=== PATIENT | female | born 1950 | race Caucasian/White ===

== ENCOUNTER 2020-02-13 13:00 | Outpatient (REF) | payer MEDICARE, SELFPAY ==
[2020-02-13 14:18] LABS: MANUAL DIFF FLAG NO
[2020-02-13 14:23] LABS: Basophils Absolute Auto 0.1 X10*3/uL (0.0-0.2); Basophils Percent Auto 0.8 % (0-2); Eosinophils Absolute Auto 0.2 X10*3/uL (0.0-0.4); Eosinophils Percent Auto 2.4 % (0-4); Hematocrit 36.6 % (37-47); Hemoglobin 11.8 g/dl (12.0-16.0); Imm Gran Abs Auto 0.02 X10*3/uL (0.00-0.03); Imm Gran Pct Auto 0.3 % (0.0-0.4); Lymphocytes Absolute Auto 1.8 X10*3/uL (1.2-4.9); Lymphocytes Percent Auto 29.1 % (20-40); Mean Corpuscular HGB Conc 32.2 g/dl (31.0-35.0); Mean Corpuscular Hemoglobin 30.1 pg (27.0-33.0); Mean Corpuscular Volume 93.4 fL (80-98); Monocytes Absolute Auto 0.5 X10*3/uL (0.1-1.2); Neutrophils Absolute Auto 3.7 X10*3/uL (2.0-8.3); Neutrophils Percent Auto 59.4 % (45-73); Platelet Count 284 X10*3/uL (160-400); Red Blood Count 3.92 X10*6/uL (4.20-5.50); Red Cell Distribution Width 14.7 % (11.0-16.0); White Blood Count 6.2 X10*3/uL (4.8-10.8)
[2020-02-13 14:33] LABS: Estimated Average Glucose 108 mg/dL; Hemoglobin A1c % 5.4 %
[2020-02-13 15:03] LABS: Iron 90 mcg/dL (30-160); Percent Iron Saturation 25 % (15-50); Total Iron Binding Capacity 355 mcg/dL (228-428); Unsaturated Iron Binding 265 ug/dL
[2020-02-13 15:25] LABS: Ferritin 26 ng/mL (10-250); Vitamin D 25-OH Total 24.9 ng/mL (>30)
[2020-02-13 15:37] LABS: Folate 11.3 ng/mL (> or = 4.0); Vitamin B12 < 146 pg/mL (200-900)
== END 2020-02-13 13:01 | disposition home or self-care (01) ==
LOC: HO.LAB 13:00
PROVIDERS: PCP Internal Medicine; Visit Provider Internal Medicine
DX: R53.83 Other fatigue (principal); E11.9 Type 2 diabetes mellitus without complications; Z20.828 Contact with and (suspected) exposure to other viral communicable diseases
CPT/HCPCS: 36415; 82306; 82607; 82728; 82746; 83036; 83540; 85025; C9803; U0003

== ENCOUNTER → 2020-07-01 09:45 | Outpatient (BNVA) | payer MEDICARE, SELFPAY | PROVIDERS: PCP Internal Medicine; Visit Provider Internal Medicine | DX: Z01.810 Encounter for preprocedural cardiovascular examination (principal); I95.1 Orthostatic hypotension; R53.83 Other fatigue; Z88.8 Allergy status to other drugs, medicaments and biological substances; Z79.899 Other long term (current) drug therapy | CPT/HCPCS: 93005; 99212 ==

== ENCOUNTER 2020-07-02 10:30 | Outpatient (REF) | payer MEDICARE, SELFPAY ==
[2020-07-02 12:23] LABS: Blood Urea Nitrogen 20 mg/dL (9-16); Estimated Glomerular Filt Rate > 60
[2020-07-02 12:56] LABS: Vitamin B12 201 pg/mL (200-900)
== END 2020-07-02 10:31 | disposition home or self-care (01) ==
LOC: HO.LAB 10:30
PROVIDERS: PCP Internal Medicine; Visit Provider Internal Medicine
DX: R53.83 Other fatigue (principal); N18.9 Chronic kidney disease, unspecified
CPT/HCPCS: 36415; 82565; 82607; 84520

== ENCOUNTER → 2020-07-20 08:50 | Outpatient (BNVA) | payer MEDICARE, SELFPAY | PROVIDERS: PCP Internal Medicine; Referring Provider Internal Medicine; Visit Provider Internal Medicine | DX: Z01.810 Encounter for preprocedural cardiovascular examination (principal); I95.1 Orthostatic hypotension; I10 Essential (primary) hypertension | CPT/HCPCS: 99212 ==

== ENCOUNTER → 2020-09-02 11:52 | Outpatient (BNVA) | payer MEDICARE, SELFPAY | PROVIDERS: PCP Internal Medicine; Visit Provider Internal Medicine ==

== ENCOUNTER 2020-09-13 08:39 | Emergency (ER) | payer MEDICARE, SELFPAY ==
--- NOTE | ~2020-09-13 | XR_ITS ---
EXAMINATION: XR CHEST CLINICAL INFORMATION: Pain. COMPARISON: 01/23/2016. TECHNIQUE: Frontal view of the chest was obtained. FINDINGS: No significant abnormality is noted involving the heart, lungs, mediastinum, bony thorax or soft tissues. Incidental note is made of multiple well-corticated loose bodies around the right shoulder with underlying moderate osteoarthrosis. XR/XR chest 1V IMPRESSION: No radiographic evidence of an acute pulmonary disease.
--- NOTE | ~2020-09-13 | CT_ITS ---
EXAMINATION: CT ABDOMEN AND PELVIS WITH CONTRAST CLINICAL INFORMATION: 70-year-old female with abdominal pain. History of diverticulitis. COMPARISON: CT abdomen pelvis June 20, 2016 TECHNIQUE: Multidetector volumetric images were obtained from the superior aspect of the liver through the pubic symphysis following administration 85 mL of Omnipaque 350 intravenous contrast. Sagittal and coronal reformatted images were obtained on the technologist's workstation. This CT examination was performed using dose optimization techniques as appropriate, variously including the following: *Automated exposure control *Adjustment of mA and/or kV according to patient size (this includes techniques or standardized protocols for targeted exams where dose is matched to indication/reason for exam; i.e. extremities or head) *Use of iterative reconstruction technique DLP: 589 mGy-cm FINDINGS: Visualized lung bases demonstrate mild dependent atelectasis. The liver demonstrates normal size, contour and attenuation. A small hepatic cyst is again noted abutting the gallbladder. The gallbladder is relatively decompressed but unremarkable. The pancreas, spleen and adrenal glands are unremarkable. Symmetrically enhancing kidneys. There is no hydronephrosis of either kidney. Tiny hiatal hernia. Normal caliber loops of small and large bowel. Moderate stool burden throughout the colon. Moderate colonic diverticulosis without CT evidence to suggest active diverticulitis. Normal appendix. Normal caliber abdominal aorta. No retroperitoneal lymphadenopathy. The bladder is well-distended and normal in appearance. Unremarkable CT appearance of the uterus. No gross free pelvic fluid. No inguinal lymphadenopathy. Diffuse osteopenia. Mild to moderate degenerative changes of the spine. CT/CT abdomen pelvis w con IMPRESSION: -Mild colonic diverticulosis without CT evidence to suggest active diverticulitis. -Moderate colonic stool burden.
--- NOTE | 2020-09-13 08:48 | ED_ITS ---
HPI - Abdominal Pain General Chief Complaint: Abdominal Pain Stated Complaint: Diverticulitis Time Seen by Provider: 09/13/20 08:48 Source: patient Mode of arrival: ambulatory Limitations: other (poor and vague historian) History of Present Illness HPI narrative: 70 yo female with hx of orthostatic hypotension, diverticulitis, here with 2 months of lower abdominal pain and loose stools bouts of back pain and n/v but no fevers, states she has had this since July 11 and now the pain is worsening so she just cannot take the pain anymore and decided to get it checked out today. Has had loose stools but states her chobani drink helps, she had an episode this weekend when she noted some dried blood on her depends but did not report bloody stools. Also c/o intermittent R sided upper back pain. MD elicited complaint: abdominal pain Pertinent past history: diverticulitis Onset (ago): month(s) (2) Pain Consistency: intermittent Location: RLQ, LLQ and suprapubic Severity: moderate Quality: cramping Radiation: none Migration to: no migration Exacerbating factors: nothing Relieving factors: nothing Context: history of similar episodes Associated symptoms: nausea, vomiting and diarrhea Related Data Home Medications Medication Instructions Recorded Confirmed atorvastatin 20 mg tablet 20 mg PO DAILY 07/01/20 07/20/20 cholecalciferol (vitamin D3) 1,250 1,250 mcg PO QWEEK 07/01/20 07/20/20 mcg (50,000 unit) capsule cyanocobalamin (vitamin B-12) mcg IM 07/01/20 07/20/20 1,000 mcg/mL injection solution ferrous sulfate 325 mg (65 mg 325 mg PO DAILY 07/01/20 07/20/20 iron) tablet fluoxetine 40 mg capsule 40 mg PO BEDTIME 07/01/20 07/20/20 lorazepam 1 mg tablet 1 mg PO TID 07/01/20 07/20/20 nitrofurantoin macrocrystal 50 mg 50 mg PO DAILY 07/01/20 07/20/20 capsule omeprazole 20 mg capsule,delayed 20 mg PO DAILY 07/01/20 07/20/20 release perphenazine 4 mg tablet 4 mg PO BEDTIME 07/01/20 07/20/20 quetiapine 300 mg tablet,extended 300 mg PO BEDTIME 07/01/20 07/20/20 release 24 hr Previous Rx's Medication Instructions Recorded cefuroxime axetil 250 mg PO BID 7 Days #14 tab 09/13/20 ondansetron 4 mg PO Q8H PRN #20 tab 09/13/20 phenazopyridine [Pyridium] 100 mg PO TID PRN #6 tab 09/13/20 Allergies Allergy/AdvReac Type Severity Reaction Status Date / Time bacitracin [From NEOSPORIN] Allergy Unknown SWELLING Verified 07/20/20 09:36 Benadryl Allergy Unknown unk Verified 07/20/20 09:36 gramicidin D [From NEOSPORIN] Allergy Unknown SWELLING Verified 07/20/20 09:36 polymyxin B [From NEOSPORIN] Allergy Unknown SWELLING Verified 07/20/20 09:36 ciprofloxacin [CIPROFLOXACIN] AdvReac Intermediate NAUSEA & Verified 07/20/20 09:36 VOMITING Review of Systems Review of Systems Constitutional : No Weight loss, No Fever, No Chills ENT/Mouth : No sore throat, No Rhinorrhea Eyes: No Swelling, No Redness Cardiovascular : No Chest Pain, No SOB, NoEdema Respiratory : No Cough, No Sputum, No Wheezing Gastrointestinal : Positive Nausea, Positive Vomiting, positive Diarrhea, positive abdominal Pain, No Hematochezia, No Melena Genitourinary : No Dysuria, No Urinary Frequency, No Hematuria, No Urgency Musculoskeletal : No joint pain, No Myalgias, No Joint Swelling, pos back pain Skin : No Skin Lesions, No rash Neuro : No Weakness, No Numbness, No Dizziness, No Headache Psych : No Anxiety/Panic, No Depression Heme/Lymph: No Bruising, No Lymphadenopathy Endocrine : No Polyuria, No Polydipsia All other systems reviewed and are negative. Physical Exam Vital Signs: Vital Signs: Last Vital Signs Temp 98.8 F 09/13/20 08:51 Pulse 74 09/13/20 10:00 Resp 16 09/13/20 10:00 BP 185/83 H 09/13/20 10:00 Pulse Ox 97 09/13/20 10:00 Body Mass Index 30.7 Appearance: Alert. Oriented X3. No acute distress. Anxious Eyes: Pupils equal, round and reactive to light. ENT: Pharynx normal. Neck: Normal inspection. Neck supple. CVS: Normal heart rate and rhythm. Pulses normal. Respiratory: No respiratory distress. Breath sounds normal. Abdomen: Soft and moderate suprapubic ttp no rebound or guarding Skin: Skin warm and dry. Normal skin color. Normal skin turgor. Extremities: No lower extremity edema. No calf ttp Neuro: Oriented X 3. No motor deficit. No sensory deficit. Course Course Course Narrative: + UA ceftriaxone ordered able to tolerate PO, afebrile, no WBC count, neg lactic acid, will treat for UTI MDM - Abdominal Pain MDM Narrative Medical decision making narrative: 70 yo female with hx of orthostatic hypotension, diverticulitis, here with 2 months of lower abdominal pain and loose stools bouts of back pain and n/v but no fevers, states she has had this since July 11 and now the pain is worsening so she just cannot take the pain anymore and decided to get it checked out today. At this time will need labs, CT scan for diverticulitis, IV morphine for pain, cultures, EKG, dispo per results and findings. Lab Data Result diagrams: 09/13/20 09:17 09/13/20 09:18 Labs: Lab Results 09/13/20 09/13/20 09/13/20 Range/Units 09:17 09:17 09:17 WBC 5.0 (4.8-10.8) X10*3/uL RBC 3.79 L (4.20-5.50) X10*6/uL Hgb 11.8 L (12.0-16.0) g/dl Hct 35.5 L (37-47) % MCV 93.7 (80-98) fL MCH 31.1 (27.0-33.0) pg MCHC 33.2 (31.0-35.0) g/dl RDW 13.5 (11.0-16.0) % Plt Count 272 (160-400) X10*3/uL MPV 10.1 (9.4-12.3) fL Immature Gran % (Auto) 0.4 (0.0-0.4) % Neut % (Auto) 71.1 (45-73) % Lymph % (Auto) 16.0 L (20-40) % [place] % (Auto) 11.1 H (2-11) % Eos % (Auto) 0.8 (0-4) % Baso % (Auto) 0.6 (0-2) % Lymph # (Auto) 0.8 L (1.2-4.9) X10*3/uL [place] # (Auto) 0.6 (0.1-1.2) X10*3/uL Eos # (Auto) 0.0 (0.0-0.4) X10*3/uL Baso # (Auto) 0.0 (0.0-0.2) X10*3/uL Abs Immat Gran (auto) 0.02 (0.00-0.03) X10*3/uL Absolute Neuts (auto) 3.5 (2.0-8.3) X10*3/uL Absolute Nucleated RBC 0.000 (0.0-0.012) X10*3/uL Nucleated RBC % (auto) 0.0 (0.0-0.2) /100WBC Sodium (135-145) mmol/L Potassium (3.3-5.1) mmol/L Chloride (96-108) mmol/L Carbon Dioxide (22-29) mmol/L Anion Gap (12-20) BUN (9-16) mg/dL Creatinine (0.5-1.4) mg/dL Estim Creat Clear Calc Estimated GFR Random Glucose (60-115) mg/dL Lactic Acid 1.8 (0.5-2.0) mmol/L Calcium (8.4-10.2) mg/dL Magnesium 1.8 (1.6-2.6) mg/dL Total Bilirubin 0.5 (0.0-1.0) mg/dL Direct Bilirubin < 0.2 (0.0-0.5) mg/dL AST 15 (5-31) U/L ALT 9 (0-31) U/L Alkaline Phosphatase 82 (39-117) U/L Troponin I High Sens (<3.5-17.0) ng/L Total Protein 5.9 L (6.5-8.0) g/dL Albumin 3.8 (3.5-5.0) g/dL Lipase 20 (8-78) U/L Urine Color Urine Appearance Urine pH (5.0-8.0) Ur Specific [place] (1.005-1.025) Urine Protein (NEG-TRACE) MG/DL Urine Glucose (UA) (NEG) MG/DL Urine Ketones (NEG) MG/DL Urine Blood (NEG) Urine Nitrite (NEG) Ur Leukocyte Esterase (NEG) Urine RBC (0) /HPF Urine WBC (0-4) /HPF Urine WBC Clumps Ur Squamous Epith Cells /LPF Urine Bacteria /LPF Urine Mucus /LPF 09/13/20 09/13/20 09/13/20 Range/Units 09:18 09:18 10:27 WBC (4.8-10.8) X10*3/uL RBC (4.20-5.50) X10*6/uL Hgb (12.0-16.0) g/dl Hct (37-47) % MCV (80-98) fL MCH (27.0-33.0) pg MCHC (31.0-35.0) g/dl RDW (11.0-16.0) % Plt Count (160-400) X10*3/uL MPV (9.4-12.3) fL Immature Gran % (Auto) (0.0-0.4) % Neut % (Auto) (45-73) % Lymph % (Auto) (20-40) % [place] % (Auto) (2-11) % Eos % (Auto) (0-4) % Baso % (Auto) (0-2) % Lymph # (Auto) (1.2-4.9) X10*3/uL [place] # (Auto) (0.1-1.2) X10*3/uL Eos # (Auto) (0.0-0.4) X10*3/uL Baso # (Auto) (0.0-0.2) X10*3/uL Abs Immat Gran (auto) (0.00-0.03) X10*3/uL Absolute Neuts (auto) (2.0-8.3) X10*3/uL Absolute Nucleated RBC (0.0-0.012) X10*3/uL Nucleated RBC % (auto) (0.0-0.2) /100WBC Sodium 139 (135-145) mmol/L Potassium 5.2 H (3.3-5.1) mmol/L Chloride 105 (96-108) mmol/L Carbon Dioxide 22 (22-29) mmol/L Anion Gap 17 (12-20) BUN 29 H (9-16) mg/dL Creatinine 1.15 (0.5-1.4) mg/dL Estim Creat Clear Calc 47.3 Estimated GFR 46 Random Glucose 104 (60-115) mg/dL Lactic Acid (0.5-2.0) mmol/L Calcium 9.3 (8.4-10.2) mg/dL Magnesium (1.6-2.6) mg/dL Total Bilirubin (0.0-1.0) mg/dL Direct Bilirubin (0.0-0.5) mg/dL AST (5-31) U/L ALT (0-31) U/L Alkaline Phosphatase (39-117) U/L Troponin I High Sens 4.4 (<3.5-17.0) ng/L Total Protein (6.5-8.0) g/dL Albumin (3.5-5.0) g/dL Lipase (8-78) U/L Urine Color YELLOW Urine Appearance HAZY Urine pH 6.0 (5.0-8.0) Ur Specific [place] 1.015 (1.005-1.025) Urine Protein NEG (NEG-TRACE) MG/DL Urine Glucose (UA) NEG (NEG) MG/DL Urine Ketones NEG (NEG) MG/DL Urine Blood NEG (NEG) Urine Nitrite POS H (NEG) Ur Leukocyte Esterase 1+ H (NEG) Urine RBC 0 (0) /HPF Urine WBC 30-49 H (0-4) /HPF Urine WBC Clumps NOTED Ur Squamous Epith Cells 1+ /LPF Urine Bacteria 3+ /LPF Urine Mucus 1+ /LPF ECG Data Attestation: I personally reviewed and interpreted this ECG as follows: ECG interpretation date: 09/13/20 ECG interpretation time: 09:28 Interpretation: Rate: 78 Rhythm: NSR Ozone: normal LVH Normal P waves. Normal FELICIANO. Normal QRS complex. ST T wave : normal no ABELINO qTC: normal prior studies: no acute ischemia The study has been interpreted contemporaneously by me. . Discharge Plan Discharge Clinical Impression: Acute UTI, Acute dehydration Abdominal pain Qualifiers: Abdominal location: lower abdomen, unspecified Qualified Code(s): R10.30 - Lower abdominal pain, unspecified Patient Disposition: Home, Self-Care Instructions: Urinary Tract Infection in Older Adults (ED) Additional Instructions: return to ED for any worsening symptoms or concerns Prescriptions: New cefuroxime axetil 250 mg tablet 250 mg PO BID 7 Days Qty: 14 RF: 0 ondansetron 4 mg tablet,disintegrating 4 mg PO Q8H PRN (Reason: nausea and vomiting) Qty: 20 RF: 0 phenazopyridine [Pyridium] 100 mg tablet 100 mg PO TID PRN (Reason: pain) Qty: 6 RF: 0 No Action nitrofurantoin macrocrystal 50 mg capsule 50 mg PO DAILY RF: 0 perphenazine 4 mg tablet 4 mg PO BEDTIME RF: 0 atorvastatin 20 mg tablet 20 mg PO DAILY RF: 0 quetiapine 300 mg tablet extended release 24 hr 300 mg PO BEDTIME RF: 0 lorazepam 1 mg tablet 1 mg PO TID RF: 0 fluoxetine 40 mg capsule 40 mg PO BEDTIME RF: 0 ferrous sulfate 325 mg (65 mg iron) tablet 325 mg PO DAILY RF: 0 omeprazole 20 mg capsule,delayed release(DR/EC) 20 mg PO DAILY RF: 0 cholecalciferol (vitamin D3) 1,250 mcg (50,000 unit) capsule 1,250 mcg PO QWEEK RF: 0 cyanocobalamin (vitamin B-12) 1,000 mcg/mL solution IM RF: 0 Referrals: Physician,None [Primary Care Provider] - 2 days (if not better) [facility] Past Medical History Attestation statement: The following information was validated with the patient. Medical History Diverticulitis Essential hypertension Orthostatic hypotension Surgical History History of tonsillectomy History of tubal ligation Family History Family History Father HTN (hypertension) Kidney disease Heart disease Pacemaker Mother HTN (hypertension) Social History Social History (Updated 09/13/20 @ 09:16 by Eun Conn DO) Alcohol intake: never Patient Tobacco Use Status: Never used Tobacco Use of substances other than those prescribed or required for medical reasons: No Advance Directives: No Advance Directives Information Provided: Yes
[2020-09-13 08:51] VITALS: BP 154/72; PULSE 86; RESP 16; TEMP 37.1; O2SAT 99; BMI 30.7
--- NOTE | 2020-09-13 08:57 | ECG_ITS ---
Test Reason : ABD PAIN Blood Pressure : / mmHG Vent. Rate : 078 BPM Atrial Rate : 078 BPM P-R Int : 142 ms QRS Dur : 076 ms QT Int : 384 ms P-R-T Axes : 047 002 041 degrees QTc Int : 437 ms Normal sinus rhythm Minimal voltage criteria for LVH, may be normal variant Borderline ECG When compared with ECG of 10-AUG-2017 15:02, T wave inversion no longer evident in Inferior leads Referred By: Eun Conn Electronically Signed By:BLANCA DAWKINS
[2020-09-13 09:24] LABS: MANUAL DIFF FLAG NO
[2020-09-13 09:26] LABS: Basophils Percent Auto 0.6 % (0-2); Eosinophils Percent Auto 0.8 % (0-4); Hematocrit 35.5 % (37-47); Hemoglobin 11.8 g/dl (12.0-16.0); Imm Gran Abs Auto 0.02 X10*3/uL (0.00-0.03); Imm Gran Pct Auto 0.4 % (0.0-0.4); Lymphocytes Absolute Auto 0.8 X10*3/uL (1.2-4.9); Mean Corpuscular HGB Conc 33.2 g/dl (31.0-35.0); Mean Corpuscular Hemoglobin 31.1 pg (27.0-33.0); Mean Corpuscular Volume 93.7 fL (80-98); Mean Platelet Volume 10.1 fL (9.4-12.3); Monocytes Absolute Auto 0.6 X10*3/uL (0.1-1.2); Monocytes Percent Auto 11.1 % (2-11); Neutrophils Absolute Auto 3.5 X10*3/uL (2.0-8.3); Neutrophils Percent Auto 71.1 % (45-73); Platelet Count 272 X10*3/uL (160-400); Red Blood Count 3.79 X10*6/uL (4.20-5.50); Red Cell Distribution Width 13.5 % (11.0-16.0)
[2020-09-13 09:36] VITALS: RESP 16
[2020-09-13] MEDS: 0.9 % Sodium Chloride 500 ML IV (09:36)
[2020-09-13] MEDS: Morphine Sulfate 4 MG/ML CARTRIDGE 2 MG IVPUSH (09:36)
[2020-09-13] MEDS: ondansetron HCL 4 MG/2 ML VIAL IVPUSH (09:36)
[2020-09-13 09:42] LABS: Lactic Acid 1.8 mmol/L (0.5-2.0)
[2020-09-13 09:47] LABS: Anion Gap 17 (12-20); Blood Urea Nitrogen 29 mg/dL (9-16); Calcium 9.3 mg/dL (8.4-10.2); Carbon Dioxide 22 mmol/L (22-29); Chloride 105 mmol/L (96-108); Creatinine Clr Calc Pharmacy 47.3; Estimated Glomerular Filt Rate 46; Glucose Random 104 mg/dL (60-115); Potassium 5.2 mmol/L (3.3-5.1); Sodium 139 mmol/L (135-145)
[2020-09-13 09:52] LABS: Alanine Aminotransferase 9 U/L (0-31); Albumin Level 3.8 g/dL (3.5-5.0); Alkaline Phosphatase 82 U/L (39-117); Aspartate Amino Transferase 15 U/L (5-31); Bilirubin Direct < 0.2 mg/dL (0.0-0.5); Bilirubin Total 0.5 mg/dL (0.0-1.0); Lipase 20 U/L (8-78); Magnesium 1.8 mg/dL (1.6-2.6); Total Protein 5.9 g/dL (6.5-8.0)
[2020-09-13 09:55] LABS: Troponin-I High Sensitivity 4.4 ng/L (<3.5-17.0)
[2020-09-13 10:00] VITALS: BP 185/83; PULSE 74; RESP 16; O2SAT 97
[2020-09-13 10:33] LABS: Glucose Urine UA NEG (NEG); Leukocyte Esterase Urine 1+ (NEG); Nitrite Urine POS (NEG); Specific Gravity - Urine 1.015 (1.005-1.025); UACC Culture Trigger YES; Urine Blood NEG (NEG); Urine Ketones NEG (NEG); Urine Protein NEG (NEG-TRACE)
[2020-09-13 10:36] LABS: Appearance Urine HAZY; Color Urine YELLOW
[2020-09-13 10:44] LABS: Bacteria Urine 3+ /LPF; Mucus Urine 1+ /LPF; RBC Urine 0 /HPF (0); Squamous Epithelial Cell Urine 1+ /LPF; WBC Clumps Urine NOTED; WBC Urine 30-49 /HPF (0-4)
[2020-09-13] MEDS: cefTRIAXone sodium 1 GM in 0.9 % Sodium Chloride 50 ML IV (10:57)
[2020-09-13] MEDS: iohexoL 350 MG/ML 100 ML INFUS..BTL IV (10:57)
== END 2020-09-13 11:59 | disposition home or self-care (01) ==
PROVIDERS: Emergency Provider Emergency Medicine
DX: N39.0 Urinary tract infection, site not specified (principal); E86.0 Dehydration; I10 Essential (primary) hypertension; I95.1 Orthostatic hypotension; Z79.899 Other long term (current) drug therapy
CPT/HCPCS: 36415; 71045; 74177; 80048; 80076; 81001; 81003; 83605; 83690; 83735; 84484; 85025; 87040; 87086; 87088; 87186; 93005; 96361; 96365; 96375; 99285; J0696; J2270; J2405; Q9967

== ENCOUNTER 2020-09-15 18:25 | Emergency (ER) | payer MEDICARE, SELFPAY ==
--- NOTE | ~2020-09-15 | XR_ITS ---
EXAMINATION: XR CHEST CLINICAL INFORMATION: Shortness of breath COMPARISON: Chest x-ray September 13, 2020 TECHNIQUE: Frontal portable view of the chest was obtained. 8:03 PM FINDINGS: Lungs are clear. No pulmonary vascular congestion. There is no pleural effusion. The heart size is normal. The cardiac and mediastinal contours are normal. There are multilevel degenerative changes of dorsal spine. 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 Large calcified intra-articular loose body versus soft tissue calcification at the inferior margin of the glenohumeral joint. XR/XR chest 1V IMPRESSION: No acute abnormality of the chest.
[2020-09-15 18:42] VITALS: BP 161/78; PULSE 77; RESP 19; TEMP 36.3; O2SAT 94; BMI 30.7
--- NOTE | 2020-09-15 20:03 | ECG_ITS ---
Test Reason : UTI Blood Pressure : / mmHG Vent. Rate : 072 BPM Atrial Rate : 072 BPM P-R Int : 144 ms QRS Dur : 086 ms QT Int : 372 ms P-R-T Axes : 059 000 029 degrees QTc Int : 407 ms Normal sinus rhythm Left ventricular hypertrophy with repolarization abnormality Abnormal ECG When compared with ECG of 13-SEP-2020 09:23, No significant change was found Referred By: Jose Alfredo Lopez Electronically Signed By:
--- NOTE | 2020-09-15 20:04 | ED.GENADULT ---
HPI - General Adult General Chief complaint: General Medical Stated complaint: Med reaction Time Seen by Provider: 09/15/20 19:59 Source: patient and family Limitations: no limitations History of Present Illness HPI narrative: this is a 68-year-old female who was seen here 2 days ago, thought she might have diverticulitis, had a negative CT but was diagnosed with UTI. The patient was put on cefuroxime, Zofran, and Pyridium. Patient reports that since then she has had episodes of dizziness, shortness of breath, chills. She has not felt like she has had a fever. She feels like she . Needs to urinate more frequently. She has also felt like she has a lesion on the roof of her mouth . She denies abdominal pain or diarrhea. Related Data Home Medications Medication Instructions Recorded Confirmed atorvastatin 20 mg tablet 20 mg PO DAILY 07/01/20 07/20/20 cholecalciferol (vitamin D3) 1,250 1,250 mcg PO QWEEK 07/01/20 07/20/20 mcg (50,000 unit) capsule cyanocobalamin (vitamin B-12) mcg IM 07/01/20 07/20/20 1,000 mcg/mL injection solution ferrous sulfate 325 mg (65 mg 325 mg PO DAILY 07/01/20 07/20/20 iron) tablet fluoxetine 40 mg capsule 40 mg PO BEDTIME 07/01/20 07/20/20 lorazepam 1 mg tablet 1 mg PO TID 07/01/20 07/20/20 nitrofurantoin macrocrystal 50 mg 50 mg PO DAILY 07/01/20 07/20/20 capsule omeprazole 20 mg capsule,delayed 20 mg PO DAILY 07/01/20 07/20/20 release perphenazine 4 mg tablet 4 mg PO BEDTIME 07/01/20 07/20/20 quetiapine 300 mg tablet,extended 300 mg PO BEDTIME 07/01/20 07/20/20 release 24 hr Previous Rx's Medication Instructions Recorded cefuroxime axetil 250 mg PO BID 7 Days #14 tab 09/13/20 ondansetron 4 mg PO Q8H PRN #20 tab 09/13/20 phenazopyridine [Pyridium] 100 mg PO TID PRN #6 tab 09/13/20 Allergies Allergy/AdvReac Type Severity Reaction Status Date / Time bacitracin [From NEOSPORIN] Allergy Intermediate SWELLING Verified 09/15/20 18:42 Benadryl Allergy Intermediate unk Verified 09/15/20 18:42 gramicidin D [From NEOSPORIN] Allergy Intermediate SWELLING Verified 09/15/20 18:42 polymyxin B [From NEOSPORIN] Allergy Intermediate SWELLING Verified 09/15/20 18:42 ciprofloxacin [CIPROFLOXACIN] AdvReac Intermediate NAUSEA & Verified 09/15/20 18:42 VOMITING Review of Systems Review of Systems: Yes all other systems are reviewed and are negative Constitutional: Constitutional: Reports as per HPI and Denies fever(s) Eyes: Eyes: Reports as per HPI and Reports no additional eye complaints ENT: Reports system reviewed and no additional complaints, except as documented, Reports as per HPI, Denies nasal congestion, Denies nasal discharge and Denies sore throat Cardiovascular: Cardiovascular: Reports as per HPI, Denies chest pain, Reports lightheadedness and Reports dyspnea Respiratory: Respiratory: Reports as per HPI, Denies cough and Reports dyspnea Gastrointestinal: Gastrointestinal: Reports as per HPI, Denies abdominal pain, Denies diarrhea and Denies vomiting Genitourinary: Genitourinary: Reports as per HPI, Denies hematuria, Denies urinary frequency, Denies dysuria and Reports urinary urgency Musculoskeletal: Musculoskeletal: Reports no additional musculoskeletal complaints and Denies numbness Integumentary/Breasts: Skin/Breast: Reports as per HPI and Denies rash Neurologic: Reports as per HPI, Denies focal weakness, Denies numbness and Denies Sensory deficit (Neuro) Psychiatric: Psychiatric: Reports no additional psychiatric complaints and Reports as per HPI Endocrine: Endocrine: Reports no additional endocrine complaints and Reports as per HPI Hematologic/Lymphatic: Hematologic/Lymphatic: Reports no additional hematologic/lymphatic complaints, Reports as per HPI and Reports other (No peripheral edema) [facility] Past Medical History Medical History (Updated 09/15/20 @ 21:45 by Jose Alfredo Lopez MD) Diverticulitis Essential hypertension Orthostatic hypotension UTI (urinary tract infection) Surgical History History of tonsillectomy History of tubal ligation Family History Family History Father HTN (hypertension) Kidney disease Heart disease Pacemaker Mother HTN (hypertension) Social History Social History (Updated 09/13/20 @ 09:16 by Eun Conn DO) Alcohol intake: never Patient Tobacco Use Status: Never used Tobacco Advance Directives: No Advance Directives Information Provided: No Physical Exam Vital Signs: Vital Signs: Last Vital Signs Temp 98.3 F 09/15/20 21:21 Pulse 78 09/15/20 21:56 Resp 18 09/15/20 21:56 BP 154/80 H 09/15/20 21:56 Pulse Ox 98 09/15/20 21:56 Body Mass Index 30.7 Const: General: cooperative, no acute distress and alert Orientation/consciousness: patient oriented x3 HENMT: Head: Yes normal to inspection Eyes: General: appearance normal, both eyes and all related structures Eyelids: Yes eyelids normal Conjunctivae: conjunctivae normal Pupils: Equal, round and reactive pupils present Neck: Neck: Yes normal visual inspection and Yes supple Chest: Chest palpation & inspection: normal inspection of the chest Resp: Effort & Inspection: normal respiratory effort Auscultation: clear to auscultation bilaterally Cardio: Rate: regular rate Rhythm: regular rhythm Heart sounds: S1 normal heart sound present, S2 normal heart sound present, no gallops, no murmurs and no rubs GI: Palpation (GI): Soft to palpation, nontender and Other GI palpation findings present (Non-distended) Auscultation: normal bowel sounds Skin: General skin exam: no rashes or lesions noted Neuro: General: patient oriented x3, no focal motor deficits and CN's II-XI intact bilaterally Cranial nerves: Yes Equal, round and reactive pupils present Cognition (Neuro): normal cognition Motor exam (neuro): 5/5 motor strength present throughout Sensory Exam: No Sensory deficit (Neuro) Extrem: General: Yes normal to inspection and Yes no pedal edema Psych: Appearance: grossly normal Affect: normal affect Medical Decision Making MDM Narrative Medical decision making narrative: Patient with recent abdominal pain, had a CT to rule out diverticulitis which was negative. Patient did have evidence of UTI. Urine culture does show Gram-negative rods, sensitivity pending. Patient is on cefuroxime. Patient has had some sense of dizziness, dyspnea, chills. The patient appears well clinically with normal vital signs. Labs are unremarkable. Chest x-ray was unremarkable. Given the overall clinical picture, doubt pulmonary embolism. Recommend the patient continue the cefuroxime. Patient is concerned that she might be having a medication reaction, but she has no rash, pruritus, or other signs of allergic reaction. Lab Data Result diagrams: 09/15/20 20:40 09/15/20 20:40 Labs: Lab Results 09/15/20 09/15/20 09/15/20 Range/Units 20:40 20:40 20:40 WBC 6.0 (4.8-10.8) X10*3/uL RBC 3.68 L (4.20-5.50) X10*6/uL Hgb 11.5 L (12.0-16.0) g/dl Hct 33.6 L (37-47) % MCV 91.3 (80-98) fL MCH 31.3 (27.0-33.0) pg MCHC 34.2 (31.0-35.0) g/dl RDW 13.5 (11.0-16.0) % Plt Count 272 (160-400) X10*3/uL MPV 9.7 (9.4-12.3) fL Immature Gran % (Auto) 0.3 (0.0-0.4) % Neut % (Auto) 64.6 (45-73) % Lymph % (Auto) 22.1 (20-40) % [place] % (Auto) 10.6 (2-11) % Eos % (Auto) 1.7 (0-4) % Baso % (Auto) 0.7 (0-2) % Lymph # (Auto) 1.3 (1.2-4.9) X10*3/uL [place] # (Auto) 0.6 (0.1-1.2) X10*3/uL Eos # (Auto) 0.1 (0.0-0.4) X10*3/uL Baso # (Auto) 0.0 (0.0-0.2) X10*3/uL Abs Immat Gran (auto) 0.02 (0.00-0.03) X10*3/uL Absolute Neuts (auto) 3.9 (2.0-8.3) X10*3/uL Absolute Nucleated RBC 0.000 (0.0-0.012) X10*3/uL Nucleated RBC % (auto) 0.0 (0.0-0.2) /100WBC Sodium 133 L (135-145) mmol/L Potassium 4.2 (3.3-5.1) mmol/L Chloride 99 (96-108) mmol/L Carbon Dioxide 24 (22-29) mmol/L Anion Gap 14 (12-20) BUN 28 H (9-16) mg/dL Creatinine 0.93 (0.5-1.4) mg/dL Estim Creat Clear Calc 58.5 Estimated GFR 59 Random Glucose 112 (60-115) mg/dL Calcium 9.9 D (8.4-10.2) mg/dL Total Bilirubin 0.4 (0.0-1.0) mg/dL AST 13 (5-31) U/L ALT 9 (0-31) U/L Alkaline Phosphatase 89 (39-117) U/L Troponin I High Sens 6.5 (<3.5-17.0) ng/L Total Protein 5.8 L (6.5-8.0) g/dL Albumin 3.8 (3.5-5.0) g/dL ECG Data Attestation: I personally reviewed and interpreted this ECG as follows: Interpretation: sinus rhythm with a rate of 72. LVH with associated repolarization abnormality. No acute appearing ST elevation or depression. PAC present. Baseline artifact. Discharge Plan Discharge Clinical Impression: Dizziness Patient Disposition: Home, Self-Care Instructions: Dizziness (ED) Additional Instructions: urine culture did show evidence of infection. Continue the cefuroxime, pending further identification on the urine culture of the sensitivity of the organism. Return for any new or worsened symptoms. Prescriptions: No Action cefuroxime axetil 250 mg tablet 250 mg PO BID 7 Days Qty: 14 RF: 0 ondansetron 4 mg tablet,disintegrating 4 mg PO Q8H PRN (Reason: nausea and vomiting) Qty: 20 RF: 0 phenazopyridine [Pyridium] 100 mg tablet 100 mg PO TID PRN (Reason: pain) Qty: 6 RF: 0 nitrofurantoin macrocrystal 50 mg capsule 50 mg PO DAILY RF: 0 perphenazine 4 mg tablet 4 mg PO BEDTIME RF: 0 atorvastatin 20 mg tablet 20 mg PO DAILY RF: 0 quetiapine 300 mg tablet extended release 24 hr 300 mg PO BEDTIME RF: 0 lorazepam 1 mg tablet 1 mg PO TID RF: 0 fluoxetine 40 mg capsule 40 mg PO BEDTIME RF: 0 ferrous sulfate 325 mg (65 mg iron) tablet 325 mg PO DAILY RF: 0 omeprazole 20 mg capsule,delayed release(DR/EC) 20 mg PO DAILY RF: 0 cholecalciferol (vitamin D3) 1,250 mcg (50,000 unit) capsule 1,250 mcg PO QWEEK RF: 0 cyanocobalamin (vitamin B-12) 1,000 mcg/mL solution IM RF: 0 Interventions: ED Discharge Assessment Last Done: 09/15/20 22:05 Discharge Date/Time: 09/15/20 22:06
[2020-09-15] MEDS: 0.9 % Sodium Chloride 1,000 ML 999 ML IV (20:47)
[2020-09-15 20:51] LABS: MANUAL DIFF FLAG NO
[2020-09-15 20:53] LABS: Basophils Percent Auto 0.7 % (0-2); Eosinophils Absolute Auto 0.1 X10*3/uL (0.0-0.4); Eosinophils Percent Auto 1.7 % (0-4); Hematocrit 33.6 % (37-47); Hemoglobin 11.5 g/dl (12.0-16.0); Imm Gran Abs Auto 0.02 X10*3/uL (0.00-0.03); Imm Gran Pct Auto 0.3 % (0.0-0.4); Lymphocytes Absolute Auto 1.3 X10*3/uL (1.2-4.9); Lymphocytes Percent Auto 22.1 % (20-40); Mean Corpuscular HGB Conc 34.2 g/dl (31.0-35.0); Mean Corpuscular Hemoglobin 31.3 pg (27.0-33.0); Mean Corpuscular Volume 91.3 fL (80-98); Mean Platelet Volume 9.7 fL (9.4-12.3); Monocytes Absolute Auto 0.6 X10*3/uL (0.1-1.2); Monocytes Percent Auto 10.6 % (2-11); Neutrophils Absolute Auto 3.9 X10*3/uL (2.0-8.3); Neutrophils Percent Auto 64.6 % (45-73); Platelet Count 272 X10*3/uL (160-400); Red Blood Count 3.68 X10*6/uL (4.20-5.50); Red Cell Distribution Width 13.5 % (11.0-16.0)
[2020-09-15 21:17] LABS: Alanine Aminotransferase 9 U/L (0-31); Albumin Level 3.8 g/dL (3.5-5.0); Alkaline Phosphatase 89 U/L (39-117); Anion Gap 14 (12-20); Aspartate Amino Transferase 13 U/L (5-31); Bilirubin Total 0.4 mg/dL (0.0-1.0); Blood Urea Nitrogen 28 mg/dL (9-16); Calcium 9.9 mg/dL (8.4-10.2); Carbon Dioxide 24 mmol/L (22-29); Chloride 99 mmol/L (96-108); Creatinine Clr Calc Pharmacy 58.5; Estimated Glomerular Filt Rate 59; Glucose Random 112 mg/dL (60-115); Potassium 4.2 mmol/L (3.3-5.1); Sodium 133 mmol/L (135-145); Total Protein 5.8 g/dL (6.5-8.0)
--- NOTE | 2020-09-15 21:20 | PC.NURSE ---
IV PLACED TO LAC, LABS DRAWN TO LAB. NS UP AND RUNNING W/O SITE INTACT.
[2020-09-15 21:21] VITALS: BP 202/83; PULSE 80; RESP 18; TEMP 36.8; O2SAT 98
[2020-09-15 21:24] LABS: Troponin-I High Sensitivity 6.5 ng/L (<3.5-17.0)
[2020-09-15 21:56] VITALS: BP 154/80; PULSE 78; RESP 18; O2SAT 98
== END 2020-09-15 22:06 | disposition home or self-care (01) ==
PROVIDERS: Emergency Provider Emergency Medicine
DX: R42 Dizziness and giddiness (principal); N39.0 Urinary tract infection, site not specified; I10 Essential (primary) hypertension; Z79.899 Other long term (current) drug therapy
CPT/HCPCS: 36415; 71045; 80053; 84484; 85025; 93005; 96360; 99284

== ENCOUNTER 2020-09-18 21:51 | Emergency (ER) | payer MEDICARE, SELFPAY ==
--- NOTE | ~2020-09-18 | CT_ITS ---
EXAMINATION: CT ABDOMEN AND PELVIS WITH CONTRAST CLINICAL INFORMATION: Abdominal pain COMPARISON: 09/14/2019 TECHNIQUE: Multidetector volumetric images were obtained from the superior aspect of the liver through the pubic symphysis following administration 85 mL of Omnipaque 350 intravenous contrast. Sagittal and coronal reformatted images were obtained on the technologist's workstation. Oral contrast: No This CT examination was performed using dose optimization techniques as appropriate, variously including the following: *Automated exposure control *Adjustment of mA and/or kV according to patient size (this includes techniques or standardized protocols for targeted exams where dose is matched to indication/reason for exam; i.e. extremities or head) *Use of iterative reconstruction technique DLP: 740 mGy-cm FINDINGS: LUNG BASES: Minimal bibasilar atelectasis. Coronary artery calcifications. LIVER, GALLBLADDER, AND BILIARY TREE: The liver is normal in size, shape, and attenuation. No biliary ductal dilatation. Left hepatic cyst again noted.. The gallbladder is unremarkable with no evidence of radiopaque gallstones, gallbladder wall thickening, or obvious pericholecystic inflammatory changes. PANCREAS: Unremarkable. SPLEEN: Unremarkable. ADRENAL GLANDS: Unremarkable. KIDNEYS AND URETERS: The kidneys are normal in size, shape, and attenuation. No hydronephrosis, hydroureter, or calculi seen. No perinephric stranding. BLADDER: Unremarkable. GASTROINTESTINAL TRACT: Tiny hiatal hernia. Stomach is decompressed. Normal caliber small bowel. No obstruction. No colonic wall thickening or inflammatory change. Normal appendix. No free air or free fluid. ABDOMINAL WALL: No significant hernia is appreciated. LYMPH NODES: Normal. VASCULAR: Unremarkable. PELVIC VISCERA: The uterus and adnexa are unremarkable. OSSEOUS STRUCTURES: No acute or suspicious osseous abnormality. Degenerative changes throughout the spine. Degenerative changes of the right hip. CT/CT abdomen pelvis w con IMPRESSION: No acute finding in the abdomen or pelvis. No inflammatory change.
[2020-09-18 22:03] VITALS: BP 129/75; PULSE 83; RESP 16; TEMP 36.7; O2SAT 99; BMI 29.8
[2020-09-18 22:22] LABS: Glucose Urine UA NEG (NEG); Leukocyte Esterase Urine NEG (NEG); Nitrite Urine NEG (NEG); Specific Gravity - Urine <= 1.005 (1.005-1.025); Urine Blood NEG (NEG); Urine Ketones NEG (NEG); Urine Protein NEG (NEG-TRACE)
[2020-09-18 22:23] LABS: Appearance Urine CLEAR; Color Urine YELLOW
--- NOTE | 2020-09-18 23:03 | ED_ITS ---
HPI - Female Genitourinary General Chief complaint: Urogenital-Female Stated complaint: ABD PAIN Time Seen by Provider: 09/18/20 22:56 History of Present Illness HPI Narrative: Patient is a 70-year-old female presents today with having abdominal pain. Is over the lower abdomen. There is no fever no chills. Patient had a history urinary tract infection was treated with cefuroxime 5 days ago. Patient took our antibiotic no pain on urination. Patient denies any diarrhea. No vomiting. Patient is worried about her medications. Worry she still have urinary tract infection. Presented to the emergency department. Related Data Home Medications Medication Instructions Recorded Confirmed atorvastatin 20 mg tablet 20 mg PO DAILY 07/01/20 07/20/20 cholecalciferol (vitamin D3) 1,250 1,250 mcg PO QWEEK 07/01/20 07/20/20 mcg (50,000 unit) capsule cyanocobalamin (vitamin B-12) mcg IM 07/01/20 07/20/20 1,000 mcg/mL injection solution ferrous sulfate 325 mg (65 mg 325 mg PO DAILY 07/01/20 07/20/20 iron) tablet fluoxetine 40 mg capsule 40 mg PO BEDTIME 07/01/20 07/20/20 lorazepam 1 mg tablet 1 mg PO TID 07/01/20 07/20/20 nitrofurantoin macrocrystal 50 mg 50 mg PO DAILY 07/01/20 07/20/20 capsule omeprazole 20 mg capsule,delayed 20 mg PO DAILY 07/01/20 07/20/20 release perphenazine 4 mg tablet 4 mg PO BEDTIME 07/01/20 07/20/20 quetiapine 300 mg tablet,extended 300 mg PO BEDTIME 07/01/20 07/20/20 release 24 hr Previous Rx's Medication Instructions Recorded cefuroxime axetil 250 mg PO BID 7 Days #14 tab 09/13/20 ondansetron 4 mg PO Q8H PRN #20 tab 09/13/20 phenazopyridine [Pyridium] 100 mg PO TID PRN #6 tab 09/13/20 Allergies Allergy/AdvReac Type Severity Reaction Status Date / Time bacitracin [From NEOSPORIN] Allergy Intermediate SWELLING Verified 09/15/20 18:42 Benadryl Allergy Intermediate unk Verified 09/15/20 18:42 gramicidin D [From NEOSPORIN] Allergy Intermediate SWELLING Verified 09/15/20 18:42 polymyxin B [From NEOSPORIN] Allergy Intermediate SWELLING Verified 09/15/20 18:42 ciprofloxacin [CIPROFLOXACIN] AdvReac Intermediate NAUSEA & Verified 09/15/20 18:42 VOMITING Review of Systems Review of Systems: No fever no chills no cough no congestion or upper respiratory symptoms no nausea no vomiting positive abdominal pain. No diarrhea. Yes all other systems are reviewed and are negative PMFSH Past Medical History Attestation statement: The following information was validated with the patient. Medical History Diverticulitis Essential hypertension Orthostatic hypotension UTI (urinary tract infection) Surgical History History of tonsillectomy History of tubal ligation Family History Family History Father HTN (hypertension) Kidney disease Heart disease Pacemaker Mother HTN (hypertension) Social History Social History Alcohol intake: never Patient Tobacco Use Status: Never used Tobacco Use of substances other than those prescribed or required for medical reasons: No Advance Directives: No Advance Directives Information Provided: Yes Patient : No Physical Exam Vital Signs: Vital Signs: Last Vital Signs Temp 98.0 F 09/18/20 22:03 Pulse 83 09/18/20 22:03 Resp 16 09/18/20 22:03 BP 129/75 09/18/20 22:03 Pulse Ox 99 09/18/20 22:03 Body Mass Index 29.8 Appearance: Alert. Oriented X3. No acute distress. Eyes: Pupils equal, round and reactive to light. ENT: Pharynx normal. Neck: Normal inspection. Neck supple. No lymph nodes noted. No crepitus CVS: Normal heart rate and rhythm. Pulses normal. Normal S1 and S2 Respiratory: No respiratory distress. Breath sounds normal. No Wheezing. No rales Abdomen: Soft and nontender. No rigidity. No distention. good BS x4 Skin: Skin warm and dry. Normal skin color. Normal skin turgor. Extremities: No lower extremity edema. Neurovascular intact to all extremities. No Lacerations. No Rash Neuro: Oriented X 3. No motor deficit. No sensory deficit. Moving all extermities. No slurred speech MDM - Female Genitourinary MDM Narrative Medical decision making narrative: Well-appearing no acute distress. Will get labs and CT scan of the abdomen. Urine is grossly negative for any acute evidence of infection. CT scan of the abdomen showed no evidence of diverticulitis. No abscess no perforation. No acute findings. Patient's electrolyte consistent with having some dehydration elevated BUN and creatinine. Also having low sodium of 129. This will need to be recheck done on outpatient basis. Will give a L of IV fluids. Patient is being discharged home. Hemoglobin is baseline at 11. In no distress. Patient does not have a urinary tract infection today. In stable condition. Lab Data Result diagrams: 09/18/20 23:57 09/18/20 23:56 Labs: Lab Results 09/18/20 09/18/20 09/18/20 Range/Units 22:08 23:56 23:57 WBC 6.3 (4.8-10.8) X10*3/uL RBC 3.54 L (4.20-5.50) X10*6/uL Hgb 11.2 L (12.0-16.0) g/dl Hct 32.8 L (37-47) % MCV 92.7 (80-98) fL MCH 31.6 (27.0-33.0) pg MCHC 34.1 (31.0-35.0) g/dl RDW 13.4 (11.0-16.0) % Plt Count 235 (160-400) X10*3/uL MPV 10.0 (9.4-12.3) fL Immature Gran % (Auto) 0.6 H (0.0-0.4) % Neut % (Auto) 56.4 (45-73) % Lymph % (Auto) 28.1 (20-40) % [place] % (Auto) 12.0 H (2-11) % Eos % (Auto) 1.9 (0-4) % Baso % (Auto) 1.0 (0-2) % Lymph # (Auto) 1.8 (1.2-4.9) X10*3/uL [place] # (Auto) 0.8 (0.1-1.2) X10*3/uL Eos # (Auto) 0.1 (0.0-0.4) X10*3/uL Baso # (Auto) 0.1 (0.0-0.2) X10*3/uL Abs Immat Gran (auto) 0.04 H (0.00-0.03) X10*3/uL Absolute Neuts (auto) 3.5 (2.0-8.3) X10*3/uL Absolute Nucleated RBC 0.000 (0.0-0.012) X10*3/uL Nucleated RBC % (auto) 0.0 (0.0-0.2) /100WBC Sodium 129 L (135-145) mmol/L Potassium 4.5 (3.3-5.1) mmol/L Chloride 98 (96-108) mmol/L Carbon Dioxide 19 L (22-29) mmol/L Anion Gap 17 (12-20) BUN 42 H (9-16) mg/dL Creatinine 0.96 (0.5-1.4) mg/dL Estim Creat Clear Calc 57.8 Estimated GFR 57 Random Glucose 100 (60-115) mg/dL Calcium 8.6 D (8.4-10.2) mg/dL Total Bilirubin 0.2 (0.0-1.0) mg/dL Direct Bilirubin < 0.2 (0.0-0.5) mg/dL AST 16 (5-31) U/L ALT 10 (0-31) U/L Alkaline Phosphatase 77 (39-117) U/L Total Protein 5.7 L (6.5-8.0) g/dL Albumin 3.7 (3.5-5.0) g/dL Urine Color YELLOW Urine Appearance CLEAR Urine pH 6.0 (5.0-8.0) Ur Specific [place] <= 1.005 (1.005-1.025) Urine Protein NEG (NEG-TRACE) MG/DL Urine Glucose (UA) NEG (NEG) MG/DL Urine Ketones NEG (NEG) MG/DL Urine Blood NEG (NEG) Urine Nitrite NEG (NEG) Ur Leukocyte Esterase NEG (NEG) Discharge Plan Discharge Clinical Impression: Acute hyponatremia, Abdominal pain Patient Disposition: Home, Self-Care Instructions: Acute Abdominal Pain (ED), Hyponatremia (ED), Dehydration (ED) Prescriptions: No Action cefuroxime axetil 250 mg tablet 250 mg PO BID 7 Days Qty: 14 RF: 0 ondansetron 4 mg tablet,disintegrating 4 mg PO Q8H PRN (Reason: nausea and vomiting) Qty: 20 RF: 0 phenazopyridine [Pyridium] 100 mg tablet 100 mg PO TID PRN (Reason: pain) Qty: 6 RF: 0 nitrofurantoin macrocrystal 50 mg capsule 50 mg PO DAILY RF: 0 perphenazine 4 mg tablet 4 mg PO BEDTIME RF: 0 atorvastatin 20 mg tablet 20 mg PO DAILY RF: 0 quetiapine 300 mg tablet extended release 24 hr 300 mg PO BEDTIME RF: 0 lorazepam 1 mg tablet 1 mg PO TID RF: 0 fluoxetine 40 mg capsule 40 mg PO BEDTIME RF: 0 ferrous sulfate 325 mg (65 mg iron) tablet 325 mg PO DAILY RF: 0 omeprazole 20 mg capsule,delayed release(DR/EC) 20 mg PO DAILY RF: 0 cholecalciferol (vitamin D3) 1,250 mcg (50,000 unit) capsule 1,250 mcg PO QWEEK RF: 0 cyanocobalamin (vitamin B-12) 1,000 mcg/mL solution IM RF: 0 Referrals: Physician,None [Primary Care Provider] - 2 days
[2020-09-19] VITALS: BP 164/84; PULSE 84; RESP 15; O2SAT 98
[2020-09-19 00:02] LABS: MANUAL DIFF FLAG NO
[2020-09-19 00:03] LABS: Basophils Absolute Auto 0.1 X10*3/uL (0.0-0.2); Eosinophils Absolute Auto 0.1 X10*3/uL (0.0-0.4); Eosinophils Percent Auto 1.9 % (0-4); Hematocrit 32.8 % (37-47); Hemoglobin 11.2 g/dl (12.0-16.0); Imm Gran Abs Auto 0.04 X10*3/uL (0.00-0.03); Imm Gran Pct Auto 0.6 % (0.0-0.4); Lymphocytes Absolute Auto 1.8 X10*3/uL (1.2-4.9); Lymphocytes Percent Auto 28.1 % (20-40); Mean Corpuscular HGB Conc 34.1 g/dl (31.0-35.0); Mean Corpuscular Hemoglobin 31.6 pg (27.0-33.0); Mean Corpuscular Volume 92.7 fL (80-98); Monocytes Absolute Auto 0.8 X10*3/uL (0.1-1.2); Neutrophils Absolute Auto 3.5 X10*3/uL (2.0-8.3); Neutrophils Percent Auto 56.4 % (45-73); Platelet Count 235 X10*3/uL (160-400); Red Blood Count 3.54 X10*6/uL (4.20-5.50); Red Cell Distribution Width 13.4 % (11.0-16.0); White Blood Count 6.3 X10*3/uL (4.8-10.8)
[2020-09-19 00:29] LABS: Alanine Aminotransferase 10 U/L (0-31); Albumin Level 3.7 g/dL (3.5-5.0); Alkaline Phosphatase 77 U/L (39-117); Anion Gap 17 (12-20); Aspartate Amino Transferase 16 U/L (5-31); Bilirubin Direct < 0.2 mg/dL (0.0-0.5); Bilirubin Total 0.2 mg/dL (0.0-1.0); Blood Urea Nitrogen 42 mg/dL (9-16); Calcium 8.6 mg/dL (8.4-10.2); Carbon Dioxide 19 mmol/L (22-29); Chloride 98 mmol/L (96-108); Creatinine Clr Calc Pharmacy 57.8; Estimated Glomerular Filt Rate 57; Glucose Random 100 mg/dL (60-115); Potassium 4.5 mmol/L (3.3-5.1); Sodium 129 mmol/L (135-145); Total Protein 5.7 g/dL (6.5-8.0)
[2020-09-19] MEDS: iohexoL 350 MG/ML 100 ML INFUS..BTL 85 ML IV (00:51)
[2020-09-19] MEDS: 0.9 % Sodium Chloride 1,000 ML 999 ML IV (01:24)
[2020-09-19 02:00] VITALS: BP 145/62; PULSE 84; RESP 15; TEMP 36.7; O2SAT 98
== END 2020-09-19 03:22 | disposition home or self-care (01) ==
PROVIDERS: Emergency Provider Emergency Medicine Emergency Medical Services
DX: R10.30 Lower abdominal pain, unspecified (principal); E87.1 Hypo-osmolality and hyponatremia; I10 Essential (primary) hypertension; Z79.899 Other long term (current) drug therapy
CPT/HCPCS: 36415; 74177; 80048; 80076; 81003; 85025; 96360; 99284; 99285; Q9967

== ENCOUNTER → 2020-10-20 09:44 | Outpatient (BNVA) | payer MEDICARE, SELFPAY | PROVIDERS: Visit Provider Internal Medicine | DX: I95.1 Orthostatic hypotension (principal); I10 Essential (primary) hypertension | CPT/HCPCS: 99212 ==

== ENCOUNTER → 2021-01-10 09:15 | Outpatient (BNVA) | payer MEDICARE, SELFPAY | PROVIDERS: Visit Provider Internal Medicine | DX: Z01.810 Encounter for preprocedural cardiovascular examination (principal); I10 Essential (primary) hypertension; I95.1 Orthostatic hypotension | CPT/HCPCS: 93005; 99212 ==

== ENCOUNTER → 2021-01-17 08:46 | Outpatient (BNVA) | payer MEDICARE, SELFPAY | PROVIDERS: PCP Nurse Practitioner Family; Referring Provider Nurse Practitioner Family; Visit Provider Internal Medicine ==

== ENCOUNTER 2021-04-26 09:17 | Outpatient (REF) | payer MEDICARE, SELFPAY ==
[2021-04-26 16:34] LABS: Anion Gap 13 (12-20); Blood Urea Nitrogen 35 mg/dL (9-16); Calcium 9.1 mg/dL (8.4-10.2); Carbon Dioxide 24 mmol/L (22-29); Chloride 101 mmol/L (96-108); Estimated Glomerular Filt Rate 54; Glucose Random 91 mg/dL (60-115); Potassium 4.5 mmol/L (3.3-5.1); Sodium 133 mmol/L (135-145)
== END 2021-04-26 09:18 | disposition home or self-care (01) ==
LOC: HO.LAB 09:17
PROVIDERS: PCP Nurse Practitioner Family; Referring Provider Nurse Practitioner Family; Visit Provider Internal Medicine
DX: I95.1 Orthostatic hypotension (principal); I10 Essential (primary) hypertension
CPT/HCPCS: 36415; 80048; 99212

== ENCOUNTER → 2021-08-23 09:31 | Outpatient (BNVA) | payer MEDICARE, SELFPAY | PROVIDERS: PCP Nurse Practitioner Family; Referring Provider Nurse Practitioner Family; Visit Provider Internal Medicine | DX: I95.1 Orthostatic hypotension (principal); I10 Essential (primary) hypertension; Z79.899 Other long term (current) drug therapy | CPT/HCPCS: 99212 ==

== ENCOUNTER → 2021-10-05 13:56 | Outpatient (BNVA) | payer MEDICARE, SELFPAY | PROVIDERS: PCP Nurse Practitioner Family; Referring Provider Nurse Practitioner Family; Visit Provider Nurse Practitioner Family | DX: I95.1 Orthostatic hypotension (principal); I10 Essential (primary) hypertension; Z79.899 Other long term (current) drug therapy | CPT/HCPCS: 99212 ==

== ENCOUNTER → 2022-02-06 08:47 | Outpatient (BNVA) | payer MEDICARE, SELFPAY | PROVIDERS: PCP Internal Medicine; Referring Provider Internal Medicine; Visit Provider Internal Medicine | DX: I95.1 Orthostatic hypotension (principal) | CPT/HCPCS: 93005; 99212 ==

== ENCOUNTER 2023-06-11 10:45 | Outpatient (AMB) | payer MEDICARE, SELFPAY ==
[2023-06-11 11:02] VITALS: BP 120/68; PULSE 74; BMI 29.7
--- NOTE | 2023-06-11 11:02 | A.OFFVIS_ITS ---
Intake Vital Signs 06/11/23 11:02 Height 5 ft 7 in Weight 189 lb 9.561 oz BMI 29.7 BP 120/68 Blood Pressure Location Lt brachial Position Sitting Pulse 74 Pulse Source Monitor Intake Visit Reasons: follow up/BP Allergies bacitracin [From NEOSPORIN] Allergy (Intermediate, Verified 02/06/22 09:05) SWELLING Benadryl Allergy (Intermediate, Verified 02/06/22 09:05) unk gramicidin D [From NEOSPORIN] Allergy (Intermediate, Verified 02/06/22 09:05) SWELLING polymyxin B [From NEOSPORIN] Allergy (Intermediate, Verified 02/06/22 09:05) SWELLING ciprofloxacin [CIPROFLOXACIN] Adverse Reaction (Intermediate, Verified 02/06/22 09:05) NAUSEA & VOMITING Medication List - Last Reconciled 06/11/23 by Vargas French MD atorvastatin 20 mg PO DAILY celecoxib 200 mg PO DAILY cholecalciferol (vitamin D3) (Vitamin D3) 50 mcg PO DAILY fluoxetine 40 mg PO BEDTIME levothyroxine 75 mcg PO DAILY lorazepam 1 mg PO TID omeprazole 20 mg PO DAILY perphenazine 4 mg PO BEDTIME quetiapine 300 mg PO DAILY quetiapine ER 300 mg PO BEDTIME HPI HPI Comments History of Present Illness Details Gayathri returns for follow-up regarding orthostatic hypotension. In the past, she was on fludrocortisone and midodrine. Then had severe hypertension leading to [facility] hospitalization. She does not seem to be on these medications anymore. No recent issues with orthostatic hypotension either. Otherwise, she states she feels well. [facility] Medical History Diverticulitis Essential hypertension Orthostatic hypotension UTI (urinary tract infection) Surgical History History of knee replacement procedure of right knee History of tonsillectomy History of tubal ligation Family History Father HTN (hypertension) Kidney disease Heart disease Pacemaker Mother HTN (hypertension) Social History Alcohol intake: never Patient Tobacco Use Status: Never used Tobacco Review of Systems Const Denies weakness ENT Denies dizziness Card Denies chest pain, Denies chest pain with activity, Denies syncope, Denies rapid heart rate, Denies pedal edema, Denies edema, Denies leg edema, Denies lightheadedness, Denies palpitations, Denies dyspnea, Denies dyspnea on exertion and Denies orthopnea Resp Denies cough, Denies dyspnea and Denies dyspnea on exertion GI Denies hematochezia and Denies change in stool character Musc Denies abnormal gait, Denies muscle cramps, Denies muscle weakness, Denies numbness, Denies radiating pain into limb and Denies tingling Neuro Denies abnormal gait, Denies dizziness, Denies syncope, Denies numbness, Denies tingling and Denies weakness Endo Denies palpitations Physical Exam Vital Signs: Last Vital Signs Pulse 74 06/11/23 11:02 BP 120/68 06/11/23 11:02 BMI result Body Mass Index 29.7 Const General: comfortable and no acute distress Orientation/consciousness: patient oriented x3 HEENT Other: Unremarkable Head: Yes normal to inspection Neck Neck: Yes normal visual inspection Chest Chest palpation & inspection: normal inspection of the chest Resp Auscultation: clear to auscultation bilaterally Cardio Palpation: normal PMI Heart sounds: S1 normal heart sound present, S2 normal heart sound present, no gallops, no murmurs and no rubs GI Palpation (GI): Soft to palpation Back/Spine/Pelvis Other: unremarkable Skin General skin exam: no rashes or lesions noted Neuro General: patient oriented x3 Extrem General: Yes normal to inspection Psych Mental Status: mental status grossly normal Office Procedures EKG Details: EKG with sinus rhythm at 75/Min; no significant ST-T changes; [place] [id number], Complete Assessment & Plan Assessment & Plan (1) Orthostatic hypotension: Code(s): I95.1 - Orthostatic hypotension Plan [facility] testing- Echocardiogram had shown LVEF of 65-70% and basal inferior hypokinesis. There were no valvular abnormalities. Myocardial perfusion imaging study showed no fixed or reversible defects with normal contractility during gating. As described above, off fludrocortisone and midodrine. Blood pressure seems to be in the normal range. No further changes at this time. Follow-up 1 year. In the interim, call with concerns. Coding Level of Care Code Est Pt Level 3 (11468) Diagnoses Orthostatic hypotension I95.1 CPT Codes EKG - CPT: 98659-[id number], Complete ([id number])
== END 2023-06-11 11:17 | disposition home or self-care (01) ==
PROVIDERS: PCP Internal Medicine; Visit Provider Internal Medicine
DX: I95.1 Orthostatic hypotension (principal)
CPT/HCPCS: 93010; 99213

== ENCOUNTER → 2023-06-11 10:45 | Outpatient (BNVA) | payer MEDICARE, SELFPAY | PROVIDERS: PCP Internal Medicine; Visit Provider Internal Medicine | DX: I95.1 Orthostatic hypotension (principal) | CPT/HCPCS: 93005; 99212 ==